=== PATIENT | female | born 1955 | race Caucasian/White ===

== ENCOUNTER 2018-04-08 16:08 | Observation (INO) | payer OTHER ==
[2018-04-08 16:12] VITALS: BMI 28.7
[2018-04-08 17:08] LABS: BASO # 0.1 K/uL (0.0-0.2); BASO % 1.3 % (0.0-2.0); EOS % 0.2 % (0.0-4.0); HEMOGLOBIN 13.4 g/dL (11.0-16.0); LYMPH # 2.2 K/uL (1.0-4.3); LYMPH % 32.2 % (20.0-40.0); MEAN CELL VOLUME 82.8 fL (81.0-99.0); MEAN CORPUSCULAR HEMOGLOBIN 27.7 pg (27.0-31.0); MEAN CORPUSCULAR HGB CONC 33.5 g/dL (33.0-37.0); MONO # 0.5 K/uL (0.0-0.8); MONO % 6.7 % (0.0-10.0); NEUT # 4.1 K/uL (1.8-7.0); NEUT % 59.6 % (50.0-75.0); NRBC % 0.1 % (0.0-2.0); RBC 4.84 Mil/uL (3.80-5.20); RED CELL DISTRIBUTION WIDTH 14.2 % (11.5-14.5); WHITE BLOOD COUNT 6.9 K/uL (4.8-10.8)
[2018-04-08 17:21] LABS: SQUAMOUS EPITHIAL 3 /hpf (0-5); URINE BACTERIA OCC (<OCC); URINE BILIRUBIN NEGATIVE (NEGATIVE); URINE BLOOD 3+ (NEGATIVE); URINE CLARITY Clear (Clear); URINE COLOR Straw (YELLOW); URINE GLUCOSE (UA) NORMAL (Normal); URINE LEUKOCYTE ESTERASE TRACE Leu/uL (Negative); URINE PROTEIN NEGATIVE (NEGATIVE); URINE UROBILINOGEN NORMAL mg/dL (0.2-1.0)
--- NOTE | 2018-04-08 17:36 | RAD ---
HISTORY: SOB COMPARISON: None available TECHNIQUE: Chest, one view. FINDINGS: LUNGS: Hypoinflation. No focal consolidation. Please note that chest x-ray has limited sensitivity for the detection of pulmonary masses. PLEURA: No significant pleural effusion identified. No definite pneumothorax . CARDIOVASCULAR: Cardiomegaly. Faint atherosclerotic calcification noted. OSSEOUS STRUCTURES: Degenerative changes of the spine. VISUALIZED UPPER ABDOMEN: Unremarkable. OTHER FINDINGS: None. IMPRESSION: Cardiomegaly. Hypoinflation.
[2018-04-08 18:36] LABS: BLOOD UREA NITROGEN 11 mg/dL (7-17); CALCIUM 9.2 mg/dl (8.6-10.4); GFR NON-AFRICAN AMERICAN > 60
[2018-04-08 18:38] LABS: ALB/GLOB RATIO 1.2 (1.0-2.1); ALBUMIN 5.1 g/dL (3.5-5.0); ALT/SGPT 10 U/L (9-52); AST/SGOT 58 U/L (14-36)
--- NOTE | 2018-04-08 18:38 | C.PDOC ---
History Of Present Illness Patient is a 62 year old female, with no PMHx of A-fib, presenting to the ED after being referred from 's office for tachycardia. Patient has a PMHx of Polio as a child, which resulted in abnormal gait and right hand contrac tions. Patient denies any diaphoresis, fever, chills, nausea, vomiting, diarrhea, or abdominal pain. Time Seen by Provider: 04/08/18 16:35 Chief Complaint (Nursing): Palpitations History Per: Patient History/Exam Limitations: no limitations Onset/Duration Of Symptoms: Hrs Current Symptoms Are (Timing): Still Present Associated Symptoms: denies: Nausea, Diaphoresis Recent travel outside of the [place]: No Additional History Per: Patient Past Medical History Reviewed: Historical Data, Nursing Documentation, Vital Signs Vital Signs: Last Vital Signs Temp 99.9 F H 04/08/18 16:12 Pulse 126 H 04/08/18 17:52 Resp 18 04/08/18 17:52 BP 150/78 04/08/18 17:52 Pulse Ox 100 04/08/18 17:52 - Medical History PMH: No Chronic Diseases Surgical History: No Surg Hx Family History: States: Unknown Family Hx - Social History Hx Alcohol Use: No Hx Substance Use: No - Immunization History Hx Tetanus Toxoid Vaccination: No Hx Influenza Vaccination: No Hx Pneumococcal Vaccination: No Review Of Systems Constitutional: Negative for: Fever, Chills, Sweats Cardiovascular: Positive for: Other (tachycardia ) Gastrointestinal: Negative for: Nausea, Abdominal Pain, Diarrhea Physical Exam - Physical Exam Appears: Non-toxic, No Acute Distress Skin: Normal Color, Warm, Dry Head: Atraumatic, Normacephalic Oral Mucosa: Moist Neck: Normal ROM, Supple Chest: Symmetrical, No Deformity Cardiovascular: Rhythm Regular (tachycardia ), No Murmur Respiratory: Normal Breath Sounds, No Rales, No Rhonchi, No Wheezing Gastrointestinal/Abdominal: Soft, No Tenderness, No Guarding, No Rebound Extremity: Pedal Edema (increased left to right ) Neurological/Psych: Oriented x3, Normal Speech, Normal Cognition ED Course And Treatment - Laboratory Results Result Diagrams: 04/08/18 17:04 04/08/18 18:14 Lab Results: D-Dimer, Quantitative < 200 ng/mlDDU (0-243) 04/08/18 17:29 Troponin I Cancelled 04/08/18 17:04 NT-Pro-B Natriuret Pep Cancelled 04/08/18 17:04 Total Bilirubin Cancelled 04/08/18 17:04 AST Cancelled 04/08/18 17:04 ALT Cancelled 04/08/18 17:04 Alkaline Phosphatase Cancelled 04/08/18 17:04 Total Protein Cancelled 04/08/18 17:04 Albumin Cancelled 04/08/18 17:04 Globulin Cancelled 04/08/18 17:04 Albumin/Globulin Ratio Cancelled 04/08/18 17:04 Urine Color Straw (YELLOW) 04/08/18 17:04 Urine Clarity Clear (Clear) 04/08/18 17:04 Urine pH 6.0 (5.0-8.0) 04/08/18 17:04 Ur Specific [place] 1.008 (1.003-1.030) 04/08/18 17:04 Urine Protein Negative mg/dL (NEGATIVE) 04/08/18 17:04 Urine Glucose (UA) Normal mg/dL (Normal) 04/08/18 17:04 Urine Ketones Negative mg/dL (NEGATIVE) 04/08/18 17:04 Urine Blood 3+ (NEGATIVE) H 04/08/18 17:04 Urine Nitrate Negative (NEGATIVE) 04/08/18 17:04 Urine Bilirubin Negative (NEGATIVE) 04/08/18 17:04 Urine Urobilinogen Normal mg/dL (0.2-1.0) 04/08/18 17:04 Ur Leukocyte Esterase Trace Gray/uL (Negative) 04/08/18 17:04 Urine WBC (Auto) 1 /hpf (0-5) 04/08/18 17:04 Urine RBC (Auto) 18 /hpf (0-3) H 04/08/18 17:04 Ur Squamous Epith Cells 3 /hpf (0-5) 04/08/18 17:04 Urine Bacteria Occ (<OCC) H 04/08/18 17:04 Lab Interpretation: Normal (trop and d dimer neg.) ECG: Interpreted By Me ECG Rhythm: Sinus Tachycardia (initially undertemined @ 152, then sinu stachy 125 after cardizem) ECG Interpretation: Abnormal (3rd EKG @ 2315: NSR @ 87) O2 Sat by Pulse Oximetry: 100 (on RA) Pulse Ox Interpretation: Normal - Radiology CXR: Interpreted by Me CXR Interpretation: Yes: No Acute Disease, Other (impressive thoracic scoliosis and kyphosis altering the normal cardiac silhouette and mediastinal contours) - Other Rad CXR X-Ray: Viewed By Me, Read By Radiologist Interpretation: IMPRESSION: Cardiomegaly. Hypoinflation. Progress Note: cardizem IV bolus and drip. bolus repeated when drip was not close to follow Reevaluation Time: 19:44 Reassessment Condition: Improved - Physician Consult Information Outcome Of Conversation: 1939: d/w Dr. Wilkinson, Hospitalist covering Dr. Katie martinez's pts- ok to admit. Medical Decision Making Medical Decision Making: Plan: EKG Bloodwork CXR Urinalysis IV Fluids Cardizem 30mg IVP initially ?AF/AFlutter moderately well controlled on Cardizem bolus/drip CXR with ? findings- repeat PA/Lat pending continue cardizem drip and consider change to PO regimen when able. Disposition Doctor Will See Patient In The: Hospital Counseled Patient/Family Regarding: Studies Performed, Diagnosis - Disposition Disposition: HOSPITALIZED Disposition Time: 19:46 Condition: GOOD - Clinical Impression Clinical Impression: Palpitations, Tachycardia - Scribe Statement The provider has reviewed the documentation as recorded by the Sulma Gutierrez All medical record entries made by the Sulma were at my direction and personally dictated by me. I have reviewed the chart and agree that the record accurately reflects my personal performance of the history, physical exam, medi jarred decision making, and the department course for this patient. I have also personally directed, reviewed, and agree with the discharge instructions and disposition.
[2018-04-08 18:45] LABS: B-TYPE NATRIURETIC PEPTIDE 68.6 pg/mL (0-900)
--- NOTE | 2018-04-08 19:54 | CP.PCM.HP ---
<AndreaKyle - Last Filed: 04/09/18 02:22> History of Present Illness - History of Present Illness History of Present Illness: PGY-1 History and Physical [address] Dr. Wilkinson Patient is a 62 year old female with past medical history of HTN and polio as a child presenting to ED from her PMD's office for tachycardia. Patient states she feels well, denies any chest pain or palpitations. She does endorse sensation of her "heart racing" in the past, often when going to the doctor. She denies any history of afib. No acute somatic complaints at this time. No fevers/chills, headaches, dizziness, acute changes in vision, chest pain, palpitations, sob, cough, abdominal pain, n/v/d/c. PMHx: HTN, polio--as a child. Has residual RUE contracture, weak b/l LE resulting in poor gait PSHx: appendectomy, tubal ligation Allergies: NKDA Home Medications: None Social Hx: denies alcohol, tobacco, illicit drug use Family Hx: HTN--mother, sister PMD: Dr. Steen Present on Admission - Present on Admission Any Indicators Present on Admission: No Review of Systems - Review of Systems All systems: reviewed and no additional remarkable complaints except Review of Systems: as per HPI - Constitutional Constitutional: absent: Chills, Fever - EENT Eyes: absent: Change in Vision - Cardiovascular Cardiovascular: Irregular Heart Rhythm, Pedal Edema, Rapid Heart Rate. absent: Chest Pain, Diaphoresis, Dyspnea, Palpitations - Respiratory Respiratory: absent: Cough, Dyspnea, Wheezing - Gastrointestinal Gastrointestinal: absent: Abdominal Pain, Constipation, Diarrhea, Nausea, Vomiting - Genitourinary Genitourinary: absent: Change in Urinary Stream - Musculoskeletal Musculoskeletal: Abnormal Gait, Deformity - Neurological Neurological: absent: Dizziness, Numbness, Headaches, Tingling, Weakness - Psychiatric Psychiatric: Anxiety Past Patient History - Past Social History Smoking Status: Never Smoked - NEUROLOGICAL Hx Neurological Disorder: Yes Other/Comment: polio - PSYCHIATRIC Hx Substance Use: No - SURGICAL HISTORY Hx Surgeries: Yes Hx Tubal Ligation: Yes Meds Allergies/Adverse Reactions: Allergies Allergy/AdvReac Type Severity Reaction Status Date / Time No Known Allergies Allergy Verified 04/08/18 16:11 Physical Exam - Constitutional Appears: Non-toxic, No Acute Distress - Head Exam Head Exam: ATRAUMATIC, NORMAL INSPECTION, NORMOCEPHALIC - Eye Exam Eye Exam: EOMI, Normal appearance Pupil Exam: NORMAL ACCOMODATION - ENT Exam ENT Exam: Mucous Membranes Moist, Normal Exam - Neck Exam Neck exam: Positive for: Full Rom, Normal Inspection. Negative for: Tenderness - Respiratory Exam Respiratory Exam: Clear to Auscultation Bilateral, NORMAL BREATHING PATTERN. absent: Accessory Muscle Use, Rales, Rhonchi, Wheezes, Respiratory Distress, Stridor - Cardiovascular Exam Cardiovascular Exam: Tachycardia, REGULAR RHYTHM, +S1, +S2 - GI/Abdominal Exam GI & Abdominal Exam: Normal Bowel Sounds, Soft. absent: Distended, Firm, Guarding, Hernia, Tenderness - Extremities Exam Extremities exam: Positive for: normal capillary refill, pedal edema (b/l 1+ pitting edema), pedal pulses present. Negative for: calf tenderness Additional comments: RUE contracture 2/2 polio Muscle strength b/l LE: 2/5 Muscle strength RUE: 3/5, LUE: 4/5 - Back Exam Back exam: NORMAL INSPECTION - Neurological Exam Neurological exam: Alert, Oriented x3 - Psychiatric Exam Psychiatric exam: Normal Affect, Normal Mood - Skin Skin Exam: Dry, Intact, Normal Color, Warm Results - Vital Signs Recent Vital Signs: Last Vital Signs Temp 99.9 F H 04/08/18 16:12 Pulse 126 H 04/08/18 19:00 Resp 18 04/08/18 19:00 BP 134/85 04/08/18 19:00 Pulse Ox 100 04/08/18 19:46 - Labs Result Diagrams: 04/08/18 17:04 04/08/18 18:14 Labs: Laboratory Results - last 24 hr 04/08/18 04/08/18 04/08/18 17:04 17:04 17:04 WBC 6.9 RBC 4.84 Hgb 13.4 Hct 40.0 MCV 82.8 MCH 27.7 MCHC 33.5 RDW 14.2 Plt Count 353 MPV 9.0 Neut % (Auto) 59.6 Lymph % (Auto) 32.2 [place] % (Auto) 6.7 Eos % (Auto) 0.2 Baso % (Auto) 1.3 Neut # (Auto) 4.1 Lymph # (Auto) 2.2 [place] # (Auto) 0.5 Eos # (Auto) 0.0 Baso # (Auto) 0.1 D-Dimer, Quantitative Sodium Cancelled Potassium Cancelled Chloride Cancelled Carbon Dioxide Cancelled Anion Gap Cancelled BUN Cancelled Creatinine Cancelled Est GFR ( Amer) Cancelled Est GFR (Non-Af Amer) Cancelled Random Glucose Cancelled Calcium Cancelled Total Bilirubin Cancelled AST Cancelled ALT Cancelled Alkaline Phosphatase Cancelled Troponin I Cancelled NT-Pro-B Natriuret Pep Cancelled Total Protein Cancelled Albumin Cancelled Globulin Cancelled Albumin/Globulin Ratio Cancelled Urine Color Straw Urine Clarity Clear Urine pH 6.0 Ur Specific [place] 1.008 Urine Protein Negative Urine Glucose (UA) Normal Urine Ketones Negative Urine Blood 3+ H Urine Nitrate Negative Urine Bilirubin Negative Urine Urobilinogen Normal Ur Leukocyte Esterase Trace Urine WBC (Auto) 1 Urine RBC (Auto) 18 H Ur Squamous Epith Cells 3 Urine Bacteria Occ H 04/08/18 04/08/18 17:29 18:14 WBC RBC Hgb Hct MCV MCH MCHC RDW Plt Count MPV Neut % (Auto) Lymph % (Auto) [place] % (Auto) Eos % (Auto) Baso % (Auto) Neut # (Auto) Lymph # (Auto) [place] # (Auto) Eos # (Auto) Baso # (Auto) D-Dimer, Quantitative < 200 Sodium 138 Potassium 5.6 H Chloride 103 Carbon Dioxide 24 Anion Gap 17 BUN 11 Creatinine 0.5 L Est GFR ( Amer) > 60 Est GFR (Non-Af Amer) > 60 Random Glucose 119 H Calcium 9.2 Total Bilirubin 1.5 H AST 58 H ALT 10 Alkaline Phosphatase 76 Troponin I 0.0280 NT-Pro-B Natriuret Pep 68.6 Total Protein 9.3 H Albumin 5.1 H Globulin 4.2 H Albumin/Globulin Ratio 1.2 Urine Color Urine Clarity Urine pH Ur Specific [place] Urine Protein Urine Glucose (UA) Urine Ketones Urine Blood Urine Nitrate Urine Bilirubin Urine Urobilinogen Ur Leukocyte Esterase Urine WBC (Auto) Urine RBC (Auto) Ur Squamous Epith Cells Urine Bacteria Assessment & Plan - Assessment and Plan (Free Text) Assessment: 62 year old F with PMHx of HTN, polio presenting to ED from PMD's office for acute onset tachycardia, placed on cardizem drip. Plan: Acute onset tachyarrhythmia ?Afib/flutter -received cardizem 30 mg IVP bolus x2 in ED, currently on cardizem drip -BNP negative -D dimer negative -Trop x1 negative -f/u JOHNNY panel 12pm, 6AM -A1C -lipid panel -TSH/Free T4 -CXR: Cardiomegaly. Faint atherosclerotic calcification noted. Hypoinflation -EKG: sinus tachy @ 153 bpm with occasional PVCs -f/u repeat EKG -f/u ECHO -monitor on telemetry -Cardiology (Dr. Garcia) on board -continue with cardizem drip @10cc/hr, continue to monitor, july d/c once HR<100 -switch to PO cardizem CD 180 mg daily in AM -ASA 81 mg PO daily -Crestor 5 mg PO daily Hyperkalemia -K 5.6 on admission, sample slightly hemolyzed -f/u repeat BMP @ 12 AM -continue to monitor Hx of HTN -not on any home meds -continue to monitor Hx Polio -fall precautions -PT/OT on board Ppx, Diet, Disposition -DVT ppx: scd, lovenox -Diet: HHD -PT/OT on board Case discussed with Dr. Jaja Mendez DO, PGY-1 <Farhad Wilkinson - Last Filed: 04/09/18 06:42> Results - Vital Signs Recent Vital Signs: Last Vital Signs Temp 98.2 F 04/09/18 04:51 Pulse 90 04/09/18 04:51 Resp 16 04/09/18 04:51 BP 127/82 04/09/18 04:51 Pulse Ox 100 04/09/18 04:51 - Labs Result Diagrams: 04/09/18 04:37 04/09/18 04:37 Labs: Laboratory Results - last 24 hr 04/08/18 04/08/18 04/08/18 17:04 17:04 17:04 WBC 6.9 RBC 4.84 Hgb 13.4 Hct 40.0 MCV 82.8 MCH 27.7 MCHC 33.5 RDW 14.2 Plt Count 353 MPV 9.0 Neut % (Auto) 59.6 Lymph % (Auto) 32.2 [place] % (Auto) 6.7 Eos % (Auto) 0.2 Baso % (Auto) 1.3 Neut # (Auto) 4.1 Lymph # (Auto) 2.2 [place] # (Auto) 0.5 Eos # (Auto) 0.0 Baso # (Auto) 0.1 D-Dimer, Quantitative Sodium Cancelled Potassium Cancelled Chloride Cancelled Carbon Dioxide Cancelled Anion Gap Cancelled BUN Cancelled Creatinine Cancelled Est GFR ( Amer) Cancelled Est GFR (Non-Af Amer) Cancelled Random Glucose Cancelled Calcium Cancelled Phosphorus Magnesium Total Bilirubin Cancelled AST Cancelled ALT Cancelled Alkaline Phosphatase Cancelled Total Creatine Kinase CK-MB (Mass) Troponin I Cancelled NT-Pro-B Natriuret Pep Cancelled Total Protein Cancelled Albumin Cancelled Globulin Cancelled Albumin/Globulin Ratio Cancelled Triglycerides Cholesterol LDL Cholesterol Direct HDL Cholesterol Free T4 TSH 3rd Generation Urine Color Straw Urine Clarity Clear Urine pH 6.0 Ur Specific [place] 1.008 Urine Protein Negative Urine Glucose (UA) Normal Urine Ketones Negative Urine Blood 3+ H Urine Nitrate Negative Urine Bilirubin Negative Urine Urobilinogen Normal Ur Leukocyte Esterase Trace Urine WBC (Auto) 1 Urine RBC (Auto) 18 H Ur Squamous Epith Cells 3 Urine Bacteria Occ H 04/08/18 04/08/18 04/09/18 17:29 18:14 04:00 WBC RBC Hgb Hct MCV MCH MCHC RDW Plt Count MPV Neut % (Auto) Lymph % (Auto) [place] % (Auto) Eos % (Auto) Baso % (Auto) Neut # (Auto) Lymph # (Auto) [place] # (Auto) Eos # (Auto) Baso # (Auto) D-Dimer, Quantitative < 200 Sodium 138 Potassium 5.6 H Chloride 103 Carbon Dioxide 24 Anion Gap 17 BUN 11 Creatinine 0.5 L Est GFR ( Amer) > 60 Est GFR (Non-Af Amer) > 60 Random Glucose 119 H Calcium 9.2 Phosphorus Magnesium Total Bilirubin 1.5 H AST 58 H ALT 10 Alkaline Phosphatase 76 Total Creatine Kinase CK-MB (Mass) Troponin I 0.0280 NT-Pro-B Natriuret Pep 68.6 Total Protein 9.3 H Albumin 5.1 H Globulin 4.2 H Albumin/Globulin Ratio 1.2 Triglycerides Cholesterol LDL Cholesterol Direct HDL Cholesterol Free T4 TSH 3rd Generation 3.74 Urine Color Urine Clarity Urine pH Ur Specific [place] Urine Protein Urine Glucose (UA) Urine Ketones Urine Blood Urine Nitrate Urine Bilirubin Urine Urobilinogen Ur Leukocyte Esterase Urine WBC (Auto) Urine RBC (Auto) Ur Squamous Epith Cells Urine Bacteria 04/09/18 04/09/18 04/09/18 04:37 04:37 04:37 WBC 6.9 RBC 4.66 Hgb 13.1 Hct 39.4 MCV 84.4 MCH 28.1 MCHC 33.3 RDW 14.2 Plt Count 318 MPV 9.0 Neut % (Auto) 40.4 L Lymph % (Auto) 48.3 H [place] % (Auto) 9.6 Eos % (Auto) 0.7 Baso % (Auto) 1.0 Neut # (Auto) 2.8 Lymph # (Auto) 3.3 [place] # (Auto) 0.7 Eos # (Auto) 0.0 Baso # (Auto) 0.1 D-Dimer, Quantitative Sodium 141 Potassium 3.3 L Chloride 101 Carbon Dioxide 31 H Anion Gap 12 BUN 16 Creatinine 0.7 Est GFR ( Amer) > 60 Est GFR (Non-Af Amer) > 60 Random Glucose 109 H Calcium 9.2 Phosphorus 4.1 Magnesium 1.9 Total Bilirubin 0.6 AST 22 ALT 20 Alkaline Phosphatase 85 Total Creatine Kinase 169 H CK-MB (Mass) 2.97 Troponin I 0.0240 NT-Pro-B Natriuret Pep Total Protein 8.5 H Albumin 4.5 Globulin 4.0 H Albumin/Globulin Ratio 1.1 Triglycerides 137 Cholesterol 209 H LDL Cholesterol Direct 128 HDL Cholesterol 54 Free T4 1.07 TSH 3rd Generation Urine Color Urine Clarity Urine pH Ur Specific [place] Urine Protein Urine Glucose (UA) Urine Ketones Urine Blood Urine Nitrate Urine Bilirubin Urine Urobilinogen Ur Leukocyte Esterase Urine WBC (Auto) Urine RBC (Auto) Ur Squamous Epith Cells Urine Bacteria Assessment & Plan - Date & Time Date: 04/09/18 (I have seen and examined the patient. I agree with the findings and plan of care as documented by Dr. Mendez. Patient with rapid atrial fib. Cardizem drip started in ED. Continue drip. Plan to switch to PO. Monitor on tele. ROMIx3 with EKG. Aspirin and Statin. Potassium elevated. Sample may be hemolyzed. Recheck. History of hypertension. Monitor and add medications as needed. History of polio with residual issues. Fall precautions. PT/OT. Monitor for acute changes.) Time: 06:39 Attending/Attestation - Attestation I have personally seen and examined this patient.: Yes I have fully participated in the care of the patient.: Yes I have reviewed all pertinent clinical information: Yes
[2018-04-09 04:44] LABS: BASO # 0.1 K/uL (0.0-0.2); EOS % 0.7 % (0.0-4.0); HEMOGLOBIN 13.1 g/dL (11.0-16.0); LYMPH # 3.3 K/uL (1.0-4.3); LYMPH % 48.3 % (20.0-40.0); MEAN CELL VOLUME 84.4 fL (81.0-99.0); MEAN CORPUSCULAR HEMOGLOBIN 28.1 pg (27.0-31.0); MEAN CORPUSCULAR HGB CONC 33.3 g/dL (33.0-37.0); MONO # 0.7 K/uL (0.0-0.8); MONO % 9.6 % (0.0-10.0); NEUT # 2.8 K/uL (1.8-7.0); NEUT % 40.4 % (50.0-75.0); NRBC % 0.1 % (0.0-2.0); RBC 4.66 Mil/uL (3.80-5.20); RED CELL DISTRIBUTION WIDTH 14.2 % (11.5-14.5); WHITE BLOOD COUNT 6.9 K/uL (4.8-10.8)
[2018-04-09 05:10] LABS: LDL CHOLESTEROL 128 mg/dL (0-129)
[2018-04-09 05:11] LABS: ALB/GLOB RATIO 1.1 (1.0-2.1); ALBUMIN 4.5 g/dL (3.5-5.0); ALT/SGPT 20 U/L (9-52); AST/SGOT 22 U/L (14-36); BLOOD UREA NITROGEN 16 mg/dL (7-17); CALCIUM 9.2 mg/dl (8.6-10.4); CK-MB 2.97 ng/mL (0.0-3.38); GFR NON-AFRICAN AMERICAN > 60; HDL CHOLESTEROL 54 mg/dL (30-70)
[2018-04-09] MEDS ORDERED: Potassium Chloride 20 mEq ER Tab PO ONE ×3 (05:54→08:21)
--- NOTE | 2018-04-09 08:36 | RAD ---
Date of service: 04/08/2018 HISTORY: adm cxr, tachycardia COMPARISON: No prior. TECHNIQUE: Chest PA and lateral FINDINGS: LUNGS: No active pulmonary disease. PLEURA: No significant pleural effusion identified. No pneumothorax apparent. CARDIOVASCULAR: No aortic atherosclerotic calcification present. Cardiac size does not appear dramatically enlarged however the patient rotated in multiple projections and is difficult to evaluate. No pulmonary vascular congestion. OSSEOUS STRUCTURES: Kyphoscoliotic deformity, which limits ability to adequately position on the frontal projections. VISUALIZED UPPER ABDOMEN: Normal. OTHER FINDINGS: None. IMPRESSION: No acute infiltrate bilaterally, pleural effusion or pulmonary vascular congestion.
[2018-04-09] MEDS: diltiaZEM 180 mg/24 Hours CD Cap PO SCH (11:02)
[2018-04-09] MEDS: Enoxaparin 40 mg Syringe SC SCH (11:04)
[2018-04-09 11:42] LABS: CK-MB 2.15 ng/mL (0.0-3.38); TROPONIN I 0.034 ng/mL (0.00-0.120)
--- NOTE | 2018-04-09 14:51 | CP.PCM.PN ---
<Jaime Barkley - Last Filed: 04/09/18 14:43> Subjective - Date & Time of Evaluation Date of Evaluation: 04/09/18 Time of Evaluation: 14:54 - Subjective Subjective: PGY-[address] Smith Patient seen and examined at bedside in ER this morning. She has no acute complaints. Patient found to be normotensive and normal sinus on monitor. Nursing did call to report HTN and tachy later in the day, but resolved follow ing PM cardizem dose. Patient denies chest pain, palpitations, dizziness, nausea, vomiting, abdominal pain, headache. Objective - Vital Signs/Intake and Output Vital Signs (last 24 hours): Temp Pulse Resp BP Pulse Ox 98.5 F 109 H 21 142/88 100 04/09/18 07:15 04/09/18 12:14 04/09/18 12:14 04/09/18 12:14 04/09/18 12:14 - Medications Medications: Current Medications Aspirin (Aspirin Chewable) 81 mg PO DAILY [facility] Last Admin: 04/09/18 11:00 Dose: 81 mg Diltiazem HCl (Cardizem Cd) 180 mg PO DAILY [facility] Last Admin: 04/09/18 11:02 Dose: 180 mg Enoxaparin Sodium (Lovenox) 40 mg SC DAILY [facility] Last Admin: 04/09/18 11:04 Dose: 40 mg Influenza Virus Vaccine (Flucelvax Quad 0824-5496 Syr) 60 mcg IM .ONCE ONE Stop: 04/10/18 10:01 Rosuvastatin Calcium (Crestor) 5 mg PO [facility] Last Admin: 04/09/18 03:50 Dose: 5 mg - Labs Labs: 04/09/18 04:37 04/09/18 04:37 - Constitutional Appears: Non-toxic, No Acute Distress - Head Exam Head Exam: ATRAUMATIC, NORMAL INSPECTION - Eye Exam Eye Exam: EOMI - ENT Exam ENT Exam: Mucous Membranes Moist - Respiratory Exam Respiratory Exam: Clear to Ausculation Bilateral, NORMAL BREATHING PATTERN. absent: Rhonchi, Wheezes - Cardiovascular Exam Cardiovascular Exam: REGULAR RHYTHM, +S1, +S2 Additional comments: Sinus on monitor with HR in 80s - GI/Abdominal Exam GI & Abdominal Exam: Soft, Normal Bowel Sounds. absent: Tenderness - Extremities Exam Additional comments: Contracted upper extremities b/l (chronic 2/2 polio per patient's son) - Neurological Exam Neurological Exam: Alert, Awake, CN II-XII Intact, Oriented x3 - Psychiatric Exam Psychiatric exam: Normal Affect, Normal Mood - Skin Skin Exam: Dry, Intact Assessment and Plan - Assessment and Plan (Free Text) Assessment: Assessment: 62 year old F with PMHx of HTN, polio presenting to ED from PMD's office for acute onset tachycardia. Off cardizem drip, on PO cardizem. Monitoring on tele. Plan: Acute onset tachyarrhythmia ?Afib/flutter -received cardizem 30 mg IVP bolus x2 in ED, currently on cardizem drip -BNP negative -D dimer negative -Trop x3 negative -TSH/Free T4 WNL -CXR: Cardiomegaly. Faint atherosclerotic calcification noted. Hypoinflation -EKG: sinus tachy @ 153 bpm with occasional PVCs -3rd EKG 6am NSR in 80s. Repeating additional EKG with patient now on PO cardizem - f/u -ECHO 04/09 - f/u official read -monitor on telemetry -Cardiology (Dr. Garcia) on board -Off cardizem drip (previously on drip @10cc/hr), continue to monitor -switched to PO cardizem CD 180 mg daily in AM -ASA 81 mg PO daily -Crestor 5 mg PO daily Hyperkalemia -K 5.6 on admission, sample slightly hemolyzed -Repeat K 3.3 - repleted -continue to monitor Hx of HTN -not on any home meds -continue to monitor IGT -A1C 5.6 -Discussed with patient importance of healthy diet, especially due to fact she seems to choose to be noncompliant with medications because she does not like taking medications. -lipid panel - hypercholesterolemia; LDL/HDL WNL Hx Polio -fall precautions -PT/OT on board Ppx, Diet, Disposition -DVT ppx: scd, lovenox -Diet: HHD -PT/OT on board Case discussed with Dr. Sarah Barkley DO, PGY-1 <Cynthia Smith V - Last Filed: 04/10/18 00:53> Objective - Vital Signs/Intake and Output Vital Signs (last 24 hours): Temp Pulse Resp BP Pulse Ox 98.4 F 77 20 149/88 100 04/09/18 16:18 04/09/18 16:26 04/09/18 16:18 04/09/18 16:18 04/09/18 16:18 - Medications Medications: Current Medications Aspirin (Aspirin Chewable) 81 mg PO DAILY [facility] Last Admin: 04/09/18 11:00 Dose: 81 mg Diltiazem HCl (Cardizem Cd) 180 mg PO DAILY [facility] Last Admin: 04/09/18 11:02 Dose: 180 mg Enoxaparin Sodium (Lovenox) 40 mg SC DAILY [facility] Last Admin: 04/09/18 11:04 Dose: 40 mg Influenza Virus Vaccine (Flucelvax Quad [id number] Syr) 60 mcg IM .ONCE ONE Stop: 04/10/18 10:01 Rosuvastatin Calcium (Crestor) 5 mg PO HS [facility] Last Admin: 04/09/18 21:34 Dose: 5 mg - Labs Labs: 04/09/18 04:37 04/09/18 04:37 Attending/Attestation - Attestation I have personally seen and examined this patient.: Yes I have fully participated in the care of the patient.: Yes I have reviewed all pertinent clinical information, including history, physical exam and plan: Yes Notes (Text): Patient seen, examined, and case discussed with day-time resident. Patient this morning with her son and family friend at bedside. Patient allows for us to share her medical information with her son. Patient remains asymptomatic. However, she reports she chose to stop her anti- hypertensive medications on her own because she wanted to use natural/herbal supplements such as garlic/yobany etc; yet at bedside patient is eating crissosant rueda sandwich. I did advised her she cannot expect her herbal supplements to control her blood pressure if she chooses to engage in high salt diet which son reports she eats late night pizza and fried foods to contribute to unhealthy living. She was advised she should use anti-hypertensive with lifestyle modifications with natural supplements as adjunct therapy to help control her blood pressure. Yesterday, patient had received Cardizem 30mg IV X1, and cardizem drip at 10mg/hr but was stopped when heart and blood pressure lowered. Patient was on Cardizem 180mg POX1 which help to control her vitals, echo was completed.initial d-dimer was negative. was repeated by cardio which became elevated. Patient had ct angio which ruled her out for PE. pending official read for leg edema which she reports she has had for 2 months but didn't want to get evaluated sooner because she is afraid of the hospitals. Patient is requesting for PT/OT given she feels deconditioned from her polio. Acute onset tachyarrhythmia -received cardizem 30 mg IVP bolus x2 in ED, currently on cardizem drip -BNP negative -D dimer negative; repeat positive -Trop x3 negative -TSH/Free T4 WNL CT angio negative for PE -CXR: Cardiomegaly. Faint atherosclerotic calcification noted. Hypoinflation -EKG: sinus tachy @ 153 bpm with occasional PVCs -3rd EKG 6am NSR in 80s. Repeating additional EKG with patient now on PO cardizem - f/u -ECHO 04/09 - f/u official read -monitor on telemetry -Cardiology (Dr. Garcia) on board -Off cardizem drip (previously on drip @10cc/hr), continue to monitor -switched to PO cardizem CD 180 mg daily in AM -ASA 81 mg PO daily -Crestor 5 mg PO daily Hyperkalemia -K 5.6 on admission, sample slightly hemolyzed -Repeat K 3.3 - repleted -continue to monitor Hx of HTN -not on any home meds -Cardizem 180mg PO daily -continue to monitor IGT -A1C 5.6 -Discussed with patient importance of healthy diet, especially due to fact she seems to choose to be noncompliant with medications because she does not like taking medications. -lipid panel - hypercholesterolemia; LDL/HDL WNL Hx Polio -fall precautions -PT/OT on board Ppx, Diet, Disposition -DVT ppx: scd, lovenox -Diet: HHD -PT/OT on board
[2018-04-09 15:47] LABS: OPIATES, UR NEGATIVE (NEGATIVE); PHENCYCLIDINE, UR NEGATIVE (NEGATIVE)
[2018-04-09 15:49] LABS: BARBITURATES, UR NEGATIVE (NEGATIVE); BENZODIAZEPINES, UR NEGATIVE (NEGATIVE)
--- NOTE | 2018-04-09 16:17 | CP.PCM.CON ---
History of Present Illness - History of Present Illness History of Present Illness: The pt is a 62 year old woman with a h/o olio, who has leg edema. She was at a doctpor's office for this, and she had HTN and a fast heart rate, and was sent to the ER. In the ER, ECG demonstrated sinus tachycardia, and ER MD note kaylin rted atrial flutter and apparently IV cardezem ordered, now stopped. Pt had no chest pain or dyspnea with tachycardia. Pt is not a diabetic, has been told of high bp in the past, but on no meds. non smoker TNi is negative Additional ecgs show nsr Echo, I reviewed, is normal. TFT normal. Labs: mildly abnormal liver function. Review of Systems - Review of Systems All systems: reviewed and no additional remarkable complaints except (as above. Pt does not walk much and stays in the house) Past Patient History - Past Social History Smoking Status: Never Smoked - NEUROLOGICAL Hx Neurological Disorder: Yes Other/Comment: polio - PSYCHIATRIC Hx Substance Use: No - SURGICAL HISTORY Hx Surgeries: Yes Hx Tubal Ligation: Yes Meds Allergies/Adverse Reactions: Allergies Allergy/AdvReac Type Severity Reaction Status Date / Time No Known Allergies Allergy Verified 04/08/18 16:11 - Medications Medications: Current Medications Aspirin (Aspirin Chewable) 81 mg PO DAILY [facility] Last Admin: 04/09/18 11:00 Dose: 81 mg Diltiazem HCl (Cardizem Cd) 180 mg PO DAILY [facility] Last Admin: 04/09/18 11:02 Dose: 180 mg Enoxaparin Sodium (Lovenox) 40 mg SC DAILY [facility] Last Admin: 04/09/18 11:04 Dose: 40 mg Influenza Virus Vaccine (Flucelvax Quad [id number] Syr) 60 mcg IM .ONCE ONE Stop: 04/10/18 10:01 Rosuvastatin Calcium (Crestor) 5 mg PO [facility] Last Admin: 04/09/18 03:50 Dose: 5 mg Physical Exam - Constitutional Appears: Well - Head Exam Head Exam: ATRAUMATIC - Eye Exam Eye Exam: EOMI - ENT Exam ENT Exam: Mucous Membranes Moist - Neck Exam Neck exam: Positive for: Normal Inspection - Respiratory Exam Respiratory Exam: Clear to Auscultation Bilateral - Cardiovascular Exam Cardiovascular Exam: REGULAR RHYTHM - GI/Abdominal Exam GI & Abdominal Exam: Normal Bowel Sounds - Exam External exam: Swelling - Extremities Exam Extremities exam: Positive for: pedal edema - Back Exam Back exam: NORMAL INSPECTION - Psychiatric Exam Psychiatric exam: Normal Affect, Normal Mood - Skin Skin Exam: Normal Color Results - Vital Signs Recent Vital Signs: Last Vital Signs Temp 98.5 F 04/09/18 15:34 Pulse 77 04/09/18 15:34 Resp 17 04/09/18 15:34 BP 148/90 04/09/18 15:34 Pulse Ox 98 04/09/18 15:34 - Labs Result Diagrams: 04/09/18 04:37 04/09/18 04:37 Labs: Laboratory Results - last 24 hr 04/08/18 04/08/18 04/08/18 17:04 17:04 17:04 WBC 6.9 RBC 4.84 Hgb 13.4 Hct 40.0 MCV 82.8 MCH 27.7 MCHC 33.5 RDW 14.2 Plt Count 353 MPV 9.0 Neut % (Auto) 59.6 Lymph % (Auto) 32.2 [place] % (Auto) 6.7 Eos % (Auto) 0.2 Baso % (Auto) 1.3 Neut # (Auto) 4.1 Lymph # (Auto) 2.2 [place] # (Auto) 0.5 Eos # (Auto) 0.0 Baso # (Auto) 0.1 D-Dimer, Quantitative Sodium Cancelled Potassium Cancelled Chloride Cancelled Carbon Dioxide Cancelled Anion Gap Cancelled BUN Cancelled Creatinine Cancelled Est GFR ( Amer) Cancelled Est GFR (Non-Af Amer) Cancelled Random Glucose Cancelled Hemoglobin A1c Calcium Cancelled Phosphorus Magnesium Total Bilirubin Cancelled AST Cancelled ALT Cancelled Alkaline Phosphatase Cancelled Total Creatine Kinase CK-MB (Mass) Troponin I Cancelled NT-Pro-B Natriuret Pep Cancelled Total Protein Cancelled Albumin Cancelled Globulin Cancelled Albumin/Globulin Ratio Cancelled Triglycerides Cholesterol LDL Cholesterol Direct HDL Cholesterol Free T4 TSH 3rd Generation Urine Color Straw Urine Clarity Clear Urine pH 6.0 Ur Specific [place] 1.008 Urine Protein Negative Urine Glucose (UA) Normal Urine Ketones Negative Urine Blood 3+ H Urine Nitrate Negative Urine Bilirubin Negative Urine Urobilinogen Normal Ur Leukocyte Esterase Trace Urine WBC (Auto) 1 Urine RBC (Auto) 18 H Ur Squamous Epith Cells 3 Urine Bacteria Occ H Urine Opiates Screen Urine Methadone Screen Ur Barbiturates Screen Ur Phencyclidine Scrn Ur Amphetamines Screen U Benzodiazepines Scrn U Oth Cocaine Metabols U Cannabinoids Screen 04/08/18 04/08/18 04/09/18 17:29 18:14 04:00 WBC RBC Hgb Hct MCV MCH MCHC RDW Plt Count MPV Neut % (Auto) Lymph % (Auto) [place] % (Auto) Eos % (Auto) Baso % (Auto) Neut # (Auto) Lymph # (Auto) [place] # (Auto) Eos # (Auto) Baso # (Auto) D-Dimer, Quantitative < 200 Sodium 138 Potassium 5.6 H Chloride 103 Carbon Dioxide 24 Anion Gap 17 BUN 11 Creatinine 0.5 L Est GFR ( Amer) > 60 Est GFR (Non-Af Amer) > 60 Random Glucose 119 H Hemoglobin A1c Calcium 9.2 Phosphorus Magnesium Total Bilirubin 1.5 H AST 58 H ALT 10 Alkaline Phosphatase 76 Total Creatine Kinase CK-MB (Mass) Troponin I 0.0280 NT-Pro-B Natriuret Pep 68.6 Total Protein 9.3 H Albumin 5.1 H Globulin 4.2 H Albumin/Globulin Ratio 1.2 Triglycerides Cholesterol LDL Cholesterol Direct HDL Cholesterol Free T4 TSH 3rd Generation 3.74 Urine Color Urine Clarity Urine pH Ur Specific [place] Urine Protein Urine Glucose (UA) Urine Ketones Urine Blood Urine Nitrate Urine Bilirubin Urine Urobilinogen Ur Leukocyte Esterase Urine WBC (Auto) Urine RBC (Auto) Ur Squamous Epith Cells Urine Bacteria Urine Opiates Screen Urine Methadone Screen Ur Barbiturates Screen Ur Phencyclidine Scrn Ur Amphetamines Screen U Benzodiazepines Scrn U Oth Cocaine Metabols U Cannabinoids Screen 04/09/18 04/09/18 04/09/18 04:37 04:37 04:37 WBC 6.9 RBC 4.66 Hgb 13.1 Hct 39.4 MCV 84.4 MCH 28.1 MCHC 33.3 RDW 14.2 Plt Count 318 MPV 9.0 Neut % (Auto) 40.4 L Lymph % (Auto) 48.3 H [place] % (Auto) 9.6 Eos % (Auto) 0.7 Baso % (Auto) 1.0 Neut # (Auto) 2.8 Lymph # (Auto) 3.3 [place] # (Auto) 0.7 Eos # (Auto) 0.0 Baso # (Auto) 0.1 D-Dimer, Quantitative Sodium 141 Potassium 3.3 L Chloride 101 Carbon Dioxide 31 H Anion Gap 12 BUN 16 Creatinine 0.7 Est GFR ( Amer) > 60 Est GFR (Non-Af Amer) > 60 Random Glucose 109 H Hemoglobin A1c Calcium 9.2 Phosphorus 4.1 Magnesium 1.9 Total Bilirubin 0.6 AST 22 ALT 20 Alkaline Phosphatase 85 Total Creatine Kinase 169 H CK-MB (Mass) 2.97 Troponin I 0.0240 NT-Pro-B Natriuret Pep Total Protein 8.5 H Albumin 4.5 Globulin 4.0 H Albumin/Globulin Ratio 1.1 Triglycerides 137 Cholesterol 209 H LDL Cholesterol Direct 128 HDL Cholesterol 54 Free T4 1.07 TSH 3rd Generation Urine Color Urine Clarity Urine pH Ur Specific [place] Urine Protein Urine Glucose (UA) Urine Ketones Urine Blood Urine Nitrate Urine Bilirubin Urine Urobilinogen Ur Leukocyte Esterase Urine WBC (Auto) Urine RBC (Auto) Ur Squamous Epith Cells Urine Bacteria Urine Opiates Screen Urine Methadone Screen Ur Barbiturates Screen Ur Phencyclidine Scrn Ur Amphetamines Screen U Benzodiazepines Scrn U Oth Cocaine Metabols U Cannabinoids Screen 04/09/18 04/09/18 04/09/18 05:08 11:06 14:57 WBC RBC Hgb Hct MCV MCH MCHC RDW Plt Count MPV Neut % (Auto) Lymph % (Auto) [place] % (Auto) Eos % (Auto) Baso % (Auto) Neut # (Auto) Lymph # (Auto) [place] # (Auto) Eos # (Auto) Baso # (Auto) D-Dimer, Quantitative Sodium Potassium Chloride Carbon Dioxide Anion Gap BUN Creatinine Est GFR ( Amer) Est GFR (Non-Af Amer) Random Glucose Hemoglobin A1c 5.6 Calcium Phosphorus Magnesium Total Bilirubin AST ALT Alkaline Phosphatase Total Creatine Kinase 130 CK-MB (Mass) 2.15 Troponin I 0.0340 NT-Pro-B Natriuret Pep Total Protein Albumin Globulin Albumin/Globulin Ratio Triglycerides Cholesterol LDL Cholesterol Direct HDL Cholesterol Free T4 TSH 3rd Generation Urine Color Urine Clarity Urine pH Ur Specific [place] Urine Protein Urine Glucose (UA) Urine Ketones Urine Blood Urine Nitrate Urine Bilirubin Urine Urobilinogen Ur Leukocyte Esterase Urine WBC (Auto) Urine RBC (Auto) Ur Squamous Epith Cells Urine Bacteria Urine Opiates Screen Negative Urine Methadone Screen Negative Ur Barbiturates Screen Negative Ur Phencyclidine Scrn Negative Ur Amphetamines Screen Negative U Benzodiazepines Scrn Negative U Oth Cocaine Metabols Negative U Cannabinoids Screen Negative 04/09/18 15:02 WBC RBC Hgb Hct MCV MCH MCHC RDW Plt Count MPV Neut % (Auto) Lymph % (Auto) [place] % (Auto) Eos % (Auto) Baso % (Auto) Neut # (Auto) Lymph # (Auto) [place] # (Auto) Eos # (Auto) Baso # (Auto) D-Dimer, Quantitative 437 H Sodium Potassium Chloride Carbon Dioxide Anion Gap BUN Creatinine Est GFR ( Amer) Est GFR (Non-Af Amer) Random Glucose Hemoglobin A1c Calcium Phosphorus Magnesium Total Bilirubin AST ALT Alkaline Phosphatase Total Creatine Kinase CK-MB (Mass) Troponin I NT-Pro-B Natriuret Pep Total Protein Albumin Globulin Albumin/Globulin Ratio Triglycerides Cholesterol LDL Cholesterol Direct HDL Cholesterol Free T4 TSH 3rd Generation Urine Color Urine Clarity Urine pH Ur Specific [place] Urine Protein Urine Glucose (UA) Urine Ketones Urine Blood Urine Nitrate Urine Bilirubin Urine Urobilinogen Ur Leukocyte Esterase Urine WBC (Auto) Urine RBC (Auto) Ur Squamous Epith Cells Urine Bacteria Urine Opiates Screen Urine Methadone Screen Ur Barbiturates Screen Ur Phencyclidine Scrn Ur Amphetamines Screen U Benzodiazepines Scrn U Oth Cocaine Metabols U Cannabinoids Screen - EKG Data EKG Interpreted by: Myself EKG shows normal: Sinus rhythm Rate: Tachycardia (sinus tachycardia, otherwise normal) Assessment & Plan - Assessment and Plan (Free Text) Assessment: 1. Unexplained sinus tachycardia: d dimer ordered. If elevated, consider cta 2. Normal LV EF and doppler. neg TNI 3. No atrial flutter seen. 4. HTN: beta gilmar for both s tach and mild htn. Advance as tolerated or needed.
[2018-04-09 16:18] VITALS: RESP 20
[2018-04-09] MEDS ORDERED: Iodixanol 320 MG/ML 100 ML BOTTLE IV ONE (17:11)
--- NOTE | 2018-04-09 17:56 | CT ---
Date of service: 04/09/2018 CTA chest PE protocol Indication: s tach, elevated d dimer Technique: Contiguous axial images were obtained through the chest with intravenous contrast enhancement. Sagittal and coronal reconstructions were generated and reviewed. This CT exam was performed using 1 or more of the following dose reduction techniques: Automated exposure control, adjustment of the MAA and/or kV according to patient size, and/or use of iterative reconstruction technique. IV contrast: 100 cc Visipaque 320 Radiation dose (DLP): 473.46 MGy-cm. Comparison: Chest x-ray performed 04/08/18 Findings: Visualized portions of the inferior thyroid gland demonstrates 4 mm right lower pole nodule. The mediastinal and hilar vascular structures appear within normal limits. Mild cardiomegaly. No large central or segmental pulmonary embolus evident. No focal consolidation. No pleural effusion. No pneumothorax. 5 mm right middle lobe subpleural nodule (series 4, image 61). Limited visualized portions of the upper abdomen appear grossly unremarkable. Degenerative changes. Scoliosis. Impression: No large central or segmental pulmonary embolus identified. 5 mm right middle lobe subpleural nodule. If the patient is high risk, an optional CT at 12 months is recommended. 4 mm right lower pole thyroid nodule. Mild cardiomegaly.
--- NOTE | 2018-04-10 05:21 | CARD ---
APPROVED REPORT Date of service: 04/09/2018 EXAM: Two-dimensional and M-mode echocardiogram with Doppler and color Doppler. INDICATION Chest Pain tachycardia RISK FACTORS Hypertension 2D DIMENSIONS IVSd0.9 (0.7-1.1cm)LVDd3.3 (3.9-5.9cm) PWd1.0 (0.7-1.1cm)LA Nzbplf77 (18-58mL) LVDs1.9 (2.5-4.0cm)FS (%) 43.0 % LVEF (%)75.4 (>50%)LVEF (Jain's)63.77 % M-Mode DIMENSIONS Left Atrium (MM)3.76 (2.5-4.0cm)IVSd0.78 (0.7-1.1cm) Aortic Root2.99 (2.2-3.7cm)LVDd3.68 (4.0-5.6cm) Aortic Cusp Exc.1.73 (1.5-2.0cm)PWd0.80 (0.7-1.1cm) FS (%) 46 %LVDs1.97 (2.0-3.8cm) LVEF (%)79 (>50%) Mitral Valve MV E Jggcyert14.7cm/sMV A Bvrcohxy29.0cm/sE/A ratio0.7 TDI Lateral E' Peak V9.38cm/sMedial E' Peak V5.58cm/sE/Lateral E'7.5 E/Medial E'12.7 Tricuspid Valve TR Peak [id number]/sTR Peak [id number] LEFT VENTRICLE The left ventricle is normal size. There is normal left ventricular wall thickness. Left ventricle systolic function is normal. The Ejection Fraction is 60-65%. There is normal LV segmental wall motion. Tissue Doppler imaging reveals abnormal left ventricular diastolic dysfunction. No left ventricle thrombus noted on this study. RIGHT VENTRICLE The right ventricle is normal size. There is normal right ventricular wall thickness. The right ventricular systolic function is normal. ATRIA The left atrium size is normal. The right atrium size is normal. The interatrial septum is intact with no evidence for an atrial septal defect. AORTIC VALVE The aortic valve is normal in structure. No aortic regurgitation is present. There is no aortic valvular stenosis. MITRAL VALVE The mitral valve is normal in structure. There is no evidence of mitral valve prolapse. There is no mitral valve stenosis. There is no mitral valve regurgitation noted. TRICUSPID VALVE The tricuspid valve is normal in structure. There is mild tricuspid regurgitation. Right ventricular systolic pressure is estimated at 30-40 mmHg. There is mild pulmonary hypertension. PULMONIC VALVE The pulmonic valve is not well visualized. There is no pulmonic valvular regurgitation. GREAT VESSELS The aortic root is normal in size. PERICARDIAL EFFUSION There is no significant pericardial effusion. <Conclusion> Left ventricle systolic function is normal. The Ejection Fraction is 60-65%. Diastolic dysfunction. No aortic regurgitation is present. There is no mitral valve regurgitation noted. There is mild tricuspid regurgitation. There is mild pulmonary hypertension. There is no pulmonic valvular regurgitation.
--- NOTE | 2018-04-10 05:47 | CARD ---
APPROVED REPORT Date of service: 04/08/2018 EKG Measurement Heart [id number] [place] [id number] <Conclusion> Normal sinus rhythm Normal ECG
--- NOTE | 2018-04-10 05:51 | CARD ---
APPROVED REPORT Date of service: 04/08/2018 EKG Measurement Heart [id number] <Conclusion> Sinus tachycardia Nonspecific ST abnormality Abnormal ECG
--- NOTE | 2018-04-10 05:52 | CARD ---
APPROVED REPORT Date of service: 04/08/2018 EKG Measurement Heart [id number] <Conclusion> Sinus tachycardia with occasional premature ventricular complexes Nonspecific ST abnormality Abnormal ECG
[2018-04-10 07:52] LABS: BASO % 0.5 % (0.0-2.0); EOS # 0.1 K/uL (0.0-0.7); HEMOGLOBIN 13.1 g/dL (11.0-16.0); LYMPH % 32.2 % (20.0-40.0); MEAN CORPUSCULAR HEMOGLOBIN 28.4 pg (27.0-31.0); MEAN CORPUSCULAR HGB CONC 33.5 g/dL (33.0-37.0); MEAN PLATELET VOLUME 9.3 fL (7.2-11.7); MONO # 0.5 K/uL (0.0-0.8); MONO % 7.4 % (0.0-10.0); NEUT # 3.6 K/uL (1.8-7.0); NEUT % 58.9 % (50.0-75.0); NRBC % 0.1 % (0.0-2.0); RBC 4.61 Mil/uL (3.80-5.20); RED CELL DISTRIBUTION WIDTH 14.5 % (11.5-14.5); WHITE BLOOD COUNT 6.2 K/uL (4.8-10.8)
[2018-04-10 08:26] LABS: ALB/GLOB RATIO 1.3 (1.0-2.1); ALBUMIN 4.5 g/dL (3.5-5.0); ALT/SGPT 18 U/L (9-52); AST/SGOT 30 U/L (14-36); BLOOD UREA NITROGEN 24 mg/dL (7-17); CALCIUM 9.2 mg/dl (8.6-10.4); GFR NON-AFRICAN AMERICAN > 60
[2018-04-10 08:43] VITALS: TEMP 98; O2SAT 97
[2018-04-10] MEDS ORDERED: Influenza Vaccine 60 mcg/0.5 mL SYR (4YR UP) IM ONE ×2 (10:00→11:00)
[2018-04-10 10:16] VITALS: BP 125/86
[2018-04-10] MEDS: Enoxaparin 40 mg Syringe SC SCH (10:16)
[2018-04-10] MEDS: diltiaZEM 180 mg/24 Hours CD Cap PO SCH (10:16)
[2018-04-10] MEDS ORDERED: Influenza Vaccine 60 MCG/0.5 ML SYR (3 yr & up) IM ONE (11:00)
--- NOTE | 2018-04-10 11:02 | CP.PCM.PN ---
Subjective - Date & Time of Evaluation Date of Evaluation: 04/10/18 Time of Evaluation: 11:00 - Subjective Subjective: The pt feels well. Pt is sedentary, had sinus tach. Pos d dimer. A cta was performed, and was negative. There is a lung nodule and ct f/u is advised. Objective - Vital Signs/Intake and Output Vital Signs (last 24 hours): Temp Pulse Resp BP Pulse Ox 98 F 84 20 125/86 97 04/10/18 08:00 04/10/18 10:15 04/10/18 08:00 04/10/18 10:15 04/10/18 08:00 - Medications Medications: Current Medications Aspirin (Aspirin Chewable) 81 mg PO DAILY [facility] Last Admin: 04/10/18 10:16 Dose: 81 mg Diltiazem HCl (Cardizem Cd) 180 mg PO DAILY [facility] Last Admin: 04/10/18 10:16 Dose: 180 mg Enoxaparin Sodium (Lovenox) 40 mg SC DAILY [facility] Last Admin: 04/10/18 10:16 Dose: 40 mg Influenza Virus Vaccine (Flucelvax Quad 3999-1600 Syr) 60 mcg IM .ONCE ONE Stop: 04/10/18 11:01 Rosuvastatin Calcium (Crestor) 5 mg PO [facility] Last Admin: 04/09/18 21:34 Dose: 5 mg - Labs Labs: 04/10/18 07:38 04/10/18 07:38 - Constitutional Appears: Well - Head Exam Head Exam: ATRAUMATIC - Eye Exam Eye Exam: EOMI - ENT Exam ENT Exam: Mucous Membranes Moist - Neck Exam Neck Exam: Full ROM - Respiratory Exam Respiratory Exam: Clear to Ausculation Bilateral, NORMAL BREATHING PATTERN - Cardiovascular Exam Cardiovascular Exam: REGULAR RHYTHM - GI/Abdominal Exam GI & Abdominal Exam: Normal Bowel Sounds - Exam External exam: NORMAL EXTERNAL EXAM - Extremities Exam Extremities Exam: Pedal Edema Additional comments: right arm deformity - Back Exam Back Exam: NORMAL INSPECTION - Neurological Exam Neurological Exam: Alert, Awake, Oriented x3 - Skin Skin Exam: Normal Color Assessment and Plan - Assessment and Plan (Free Text) Assessment: 1. Sinus tachcyardia, now resolved. 2. On cardezem for HTN, bp is better. 3 Normal LV EF Will sign off , thank you
[2018-04-10 12:15] VITALS: PULSE 119
--- NOTE | 2018-04-10 13:52 | VASCLAB ---
Date of service: 04/09/2018 PROCEDURE: Lower Extremity Venous Duplex Exam. HISTORY: r/o DVT. Leg edema. PRIORS: None. TECHNIQUE: Bilateral common femoral, femoral, popliteal and posterior tibial, peroneal and great saphenous veins were evaluated. Flow was assessed with color Doppler, compressibility, assessment of phasic flow and augmentation response. Report prepared by Vivek Nichole, SHERRY, RVT FINDINGS: RIGHT: 1. Common Femoral Vein: 1.1. Compressibility - Fully compressible: Thrombus - None : Flow - Phasic: Augmentation -Normal: Reflux - None. 2. Femoral Vein: 2.1. Compressibility - Fully compressible: Thrombus - None : Flow - Phasic: Augmentation -Normal: Reflux - None. 3. Popliteal Vein: 3.1. Compressibility - Fully compressible: Thrombus - None : Flow - Phasic: Augmentation -Normal: Reflux - None. 4. Posterior Tibial Vein: 4.1. Compressibility - Fully compressible: Thrombus - None: Flow - Phasic: Augmentation -Normal: Reflux - None. 5. Peroneal Vein: 5.1. Compressibility - Fully compressible: Thrombus - None: Flow - Phasic: Augmentation -Normal: Reflux - None. 6. Great Saphenous Vein: 6.1. Compressibility - Fully compressible: Thrombus - None: Flow - Phasic: Augmentation - Normal: Reflux - None. LEFT: 1. Common Femoral Vein: 1.1. Compressibility - Fully compressible: Thrombus - None: Flow - Phasic: Augmentation -Normal: Reflux - None. 2. Femoral Vein: 2.1. Compressibility - Fully compressible: Thrombus - None: Flow - Phasic: Augmentation -Normal: Reflux - None. 3. Popliteal Vein: 3.1. Compressibility - Fully compressible: Thrombus - None : Flow - Phasic: Augmentation -Normal: Reflux - None. 4. Posterior Tibial Vein: 4.1. Compressibility - Fully compressible: Thrombus - None: Flow - Phasic: Augmentation -Normal: Reflux - None. 5. Peroneal Vein: 5.1. Compressibility - : Thrombus - : Flow - : Augmentation -: Reflux - . 6. Great Saphenous Vein: 6.1. Compressibility - Fully compressible: Thrombus - None: Flow - Phasic: Augmentation - Normal: Reflux - None. OTHER FINDINGS: Right: None significant. Left: Due to swelling in the calf, the left peroneal vein was not visualized. IMPRESSION: Right: No evidence of deep or superficial vein thrombosis of the right lower extremity. Normal valve function noted of the right side. Left: No evidence of deep or superficial vein thrombosis of the left lower extremity. Normal valve function noted of the left side.
--- NOTE | 2018-04-10 17:19 | CP.PCM.DIS ---
<Jaime Barkley - Last Filed: 04/10/18 17:32> Provider - Provider Date of Admission: 04/08/18 19:46 Attending physician: Farhad Wilkinson MD Consults: 04/08/18 20:59 Cardiology Consult Routine Comment: Consulting Provider: Benson Garcia Consulting Physician: Benson Garcia Reason for Consult: tachycardia, new onset a fib 04/10/18 00:53 Case Management Referral Routine Comment: Physician Instructions: Reason For Exam: home with home services Reason for Referral: Discharge Planning Time Spent in preparation of Discharge (in minutes): 45 Hospital Course - Lab Results Lab Results: Most Recent Lab Values WBC 6.2 K/uL (4.8-10.8) 04/10/18 07:38 RBC 4.61 Mil/uL (3.80-5.20) 04/10/18 07:38 Hgb 13.1 g/dL (11.0-16.0) 04/10/18 07:38 Hct 39.2 % (34.0-47.0) 04/10/18 07:38 MCV 85.0 fL (81.0-99.0) 04/10/18 07:38 MCH 28.4 pg (27.0-31.0) 04/10/18 07:38 MCHC 33.5 g/dL (33.0-37.0) 04/10/18 07:38 RDW 14.5 % (11.5-14.5) 04/10/18 07:38 Plt Count 324 K/uL (130-400) 04/10/18 07:38 MPV 9.3 fL (7.2-11.7) 04/10/18 07:38 Neut % (Auto) 58.9 % (50.0-75.0) 04/10/18 07:38 Lymph % (Auto) 32.2 % (20.0-40.0) 04/10/18 07:38 [place] % (Auto) 7.4 % (0.0-10.0) 04/10/18 07:38 Eos % (Auto) 1.0 % (0.0-4.0) 04/10/18 07:38 Baso % (Auto) 0.5 % (0.0-2.0) 04/10/18 07:38 Neut # (Auto) 3.6 K/uL (1.8-7.0) 04/10/18 07:38 Lymph # (Auto) 2.0 K/uL (1.0-4.3) 04/10/18 07:38 [place] # (Auto) 0.5 K/uL (0.0-0.8) 04/10/18 07:38 Eos # (Auto) 0.1 K/uL (0.0-0.7) 04/10/18 07:38 Baso # (Auto) 0.0 K/uL (0.0-0.2) 04/10/18 07:38 D-Dimer, Quantitative 437 ng/mlDDU (0-243) H 04/09/18 15:02 Sodium 139 mmol/L (132-148) 04/10/18 07:38 Potassium 3.9 mmol/L (3.6-5.2) 04/10/18 07:38 Chloride 105 mmol/L (98-107) 04/10/18 07:38 Carbon Dioxide 27 mmol/L (22-30) 04/10/18 07:38 Anion Gap 11 (10-20) 04/10/18 07:38 BUN 24 mg/dL (7-17) H 04/10/18 07:38 Creatinine 0.7 mg/dL (0.7-1.2) 04/10/18 07:38 Est GFR ( Amer) > 60 04/10/18 07:38 Est GFR (Non-Af Amer) > 60 04/10/18 07:38 POC Glucose (mg/dL) 133 mg/dL (65-110) H 04/10/18 11:58 Random Glucose 108 mg/dL (65-105) H 04/10/18 07:38 Hemoglobin A1c 5.6 % (4.2-6.5) 04/09/18 05:08 Calcium 9.2 mg/dl (8.6-10.4) 04/10/18 07:38 Phosphorus 3.9 mg/dL (2.5-4.5) 04/10/18 07:38 Magnesium 2.0 mg/dL (1.6-2.3) 04/10/18 07:38 Total Bilirubin 0.6 mg/dL (0.2-1.3) 04/10/18 07:38 AST 30 U/L (14-36) 04/10/18 07:38 ALT 18 U/L (9-52) 04/10/18 07:38 Alkaline Phosphatase 84 U/L (38-126) 04/10/18 07:38 Total Creatine Kinase 130 U/L (30-135) 04/09/18 11:06 CK-MB (Mass) 2.15 ng/mL (0.0-3.38) 04/09/18 11:06 Troponin I 0.0340 ng/mL (0.00-0.120) 04/09/18 11:06 NT-Pro-B Natriuret Pep 68.6 pg/mL (0-900) 04/08/18 18:14 Total Protein 8.1 g/dL (6.3-8.3) 04/10/18 07:38 Albumin 4.5 g/dL (3.5-5.0) 04/10/18 07:38 Globulin 3.6 gm/dL (2.2-3.9) 04/10/18 07:38 Albumin/Globulin Ratio 1.3 (1.0-2.1) 04/10/18 07:38 Triglycerides 137 mg/dL (0-149) 04/09/18 04:37 Cholesterol 209 mg/dL (0-199) H 04/09/18 04:37 LDL Cholesterol Direct 128 mg/dL (0-129) 04/09/18 04:37 HDL Cholesterol 54 mg/dL (30-70) 04/09/18 04:37 Free T4 1.07 ng/dL (0.78-2.19) 04/09/18 04:37 TSH 3rd Generation 3.74 mIU/L (0.46-4.68) 04/09/18 04:00 Urine Color Straw (YELLOW) 04/08/18 17:04 Urine Clarity Clear (Clear) 04/08/18 17:04 Urine pH 6.0 (5.0-8.0) 04/08/18 17:04 Ur Specific [place] 1.008 (1.003-1.030) 04/08/18 17:04 Urine Protein Negative mg/dL (NEGATIVE) 04/08/18 17:04 Urine Glucose (UA) Normal mg/dL (Normal) 04/08/18 17:04 Urine Ketones Negative mg/dL (NEGATIVE) 04/08/18 17:04 Urine Blood 3+ (NEGATIVE) H 04/08/18 17:04 Urine Nitrate Negative (NEGATIVE) 04/08/18 17:04 Urine Bilirubin Negative (NEGATIVE) 04/08/18 17:04 Urine Urobilinogen Normal mg/dL (0.2-1.0) 04/08/18 17:04 Ur Leukocyte Esterase Trace Gray/uL (Negative) 04/08/18 17:04 Urine WBC (Auto) 1 /hpf (0-5) 04/08/18 17:04 Urine RBC (Auto) 18 /hpf (0-3) H 04/08/18 17:04 Ur Squamous Epith Cells 3 /hpf (0-5) 04/08/18 17:04 Urine Bacteria Occ (<OCC) H 04/08/18 17:04 Urine Opiates Screen Negative (NEGATIVE) 04/09/18 14:57 Urine Methadone Screen Negative (NEGATIVE) 04/09/18 14:57 Ur Barbiturates Screen Negative (NEGATIVE) 04/09/18 14:57 Ur Phencyclidine Scrn Negative (NEGATIVE) 04/09/18 14:57 Ur Amphetamines Screen Negative (NEGATIVE) 04/09/18 14:57 U Benzodiazepines Scrn Negative (NEGATIVE) 04/09/18 14:57 U Oth Cocaine Metabols Negative (NEGATIVE) 04/09/18 14:57 U Cannabinoids Screen Negative (NEGATIVE) 04/09/18 14:57 - Hospital Course Hospital Course: Initial HPI: Patient is a 62 year old female with past medical history of HTN and polio as a child presenting to ED from her PMD's office for tachycardia. Patient states she feels well, denies any chest pain or palpitations. She does endorse sensation of her "heart racing" in the past, often when going to the doctor. She denies any history of afib. No acute somatic complaints at this time. No fevers/chills, headaches, dizziness, acute changes in vision, chest pain, pa lpitations, sob, cough, abdominal pain, n/v/d/c. Hospital Course: Patient was admitted for rapid Afib/tachycardia with rate in the 200s-220s. Patient given IV cardizem 30 mg IV push x 2 in ED, then placed on cardizem drip, and then required additional 125 mg PO cardizem once transitioned off drip. Patient was not on any medications at home, because as per patient and her family, she prefers to be "natural". EGK and ROMIs all were negative. Patient was ultimately admitted to telemetry for further monitoring. Patient was started on cardizem 180 mg PO daily, which did succeed in controlling her rate. On the rn cardiac, patient's heart rate was found to be regular for the duration of her hosptal stay (initial EKG showed sinus tach, with questional A fib on cardiac monitoring) - most likely this was sinus tach rather than A fib. Infection was ruled out as cause of tachycardia via negative UA/CXR and patient had no other symptoms of infection. Blood sugars were normal in the low 100s. D-dimer was drawn and found to be elevated, however CTA was negative for PE and bilateral LE dopplers negative for DVT. Heart rate remained stable, and patient went for echo which showed diastolic dysfunction, otherwise grossly normal. Once patient found to be medically stable, she was discharged with new Rx for PO cardizem 180 mg daily. Imaging: -CXR 04/08: Cardiomegaly. Faint atherosclerotic calcification noted. Hypoinflation -EKG intial 03/28 04/08: Sinus tach with PVCs -EKG 04/28 04/08: sinus tachy @ 153 bpm with occasional PVCs -EKG 05/26 04/08: NSR in 80s. Repeating additional EKG with patient now on PO cardizem - f/u -Echo 04/09: Left ventricular systolic function is normal. EF is 60-65%. Diastolic dysfunction. No aortic regurgitation is present. There is mild tricuspid regurgitation. TGhere is mild pulmonary hypertension. There is no pulmonic valvular regurgitation. -CTA 04/09: No large central or segmental pulmonary embolus identified. 5 mm right middle lobe subpleural nodule. If the patient is high risk, an optional CT at 12 months is recommended. 4 mm right lower pole thyroid nodule. Mild cardiomegaly. -B/l LE dopplers 04/09: --Right: No evidence of deep or superficial vein thrombosis of the right lower extremity. Normal valve function noted on the right side. --Left: No evidence of deep or superficial vein thrombosis of the left lower extremity. Normal valve function noted of the left side. Please note this is only a summary of the events of this hospitalization. Pl ease see full medical records for details. Discharge Exam - Head Exam Head Exam: ATRAUMATIC, NORMOCEPHALIC - Eye Exam Eye Exam: EOMI, Normal appearance - Respiratory Exam Respiratory Exam: absent: Rales, Rhonchi, Wheezes - Cardiovascular Exam Cardiovascular Exam: REGULAR RHYTHM, +S1, +S2. absent: Tachycardia, Diastolic murmur, Systolic Murmur - GI/Abdominal Exam GI & Abdominal Exam: Normal Bowel Sounds, Soft, Unremarkable. absent: Tenderness - Extremities Exam Additional comments: bilaterally contracted upper extremities (2/2 history of polio as a child) - Neurological Exam Neurological exam: Alert, CN II-XII Intact, Oriented x3 - Psychiatric Exam Psychiatric exam: Normal Affect, Normal Mood - Skin Skin Exam: Dry, Intact Discharge Plan - Discharge Medications Prescriptions: RX: Aspirin [Aspirin Chewable] 81 mg PO DAILY #30 chew RX: diltiaZEM CD [Cardizem CD] 180 mg PO DAILY #30 cap RX: Rosuvastatin Calcium [Crestor] 5 mg PO HS #30 tab - Follow Up Plan Condition: GOOD Disposition: HOME/ ROUTINE Instructions: Heart Healthy Diet, Aspirin, Diltiazem, Rosuvastatin, Palpitations (DC), Tachycardia (DC) Additional Instructions: Patient is cleared for discharge per Dr. Smith Please continue taking the following medications when you go home: -Aspirin 81 mg one tablet by mouth daily at 8am -Cardizem 180 mg one tablet by mouth daily at 8am -Crestor 5 mg one tablet by mouth at bedtime Please make sure to follow up with your PMD, Dr. Steen within 7 days of discharge. In addition, referrals have been provided for you to please follow up with the following doctors: -Cardiology - Dr. Garcia, regarding your new onset rapid atrial fibrillation -Pulmonology - Dr. Wong, for follow up regarding a lung nodule which was found incidentally on imaging Please return to ER if symptoms recur or worsen. Referrals: Rohan Wogn MD [Staff Provider] - Benson Garcia MD [Staff Provider] - <Cynthia Smith V - Last Filed: 04/10/18 21:50> Provider - Provider Date of Admission: 04/08/18 19:46 Attending physician: Farhad Wilkinson MD Consults: 04/08/18 20:59 Cardiology Consult Routine Comment: Consulting Provider: Benson Garcia Consulting Physician: Benson Garica Reason for Consult: tachycardia, new onset a fib 04/10/18 00:53 Case Management Referral Routine Comment: Physician Instructions: Reason For Exam: home with home services Reason for Referral: Discharge Planning Hospital Course - Lab Results Lab Results: Most Recent Lab Values WBC 6.2 K/uL (4.8-10.8) 04/10/18 07:38 RBC 4.61 Mil/uL (3.80-5.20) 04/10/18 07:38 Hgb 13.1 g/dL (11.0-16.0) 04/10/18 07:38 Hct 39.2 % (34.0-47.0) 04/10/18 07:38 MCV 85.0 fL (81.0-99.0) 04/10/18 07:38 MCH 28.4 pg (27.0-31.0) 04/10/18 07:38 MCHC 33.5 g/dL (33.0-37.0) 04/10/18 07:38 RDW 14.5 % (11.5-14.5) 04/10/18 07:38 Plt Count 324 K/uL (130-400) 04/10/18 07:38 MPV 9.3 fL (7.2-11.7) 04/10/18 07:38 Neut % (Auto) 58.9 % (50.0-75.0) 04/10/18 07:38 Lymph % (Auto) 32.2 % (20.0-40.0) 04/10/18 07:38 [place] % (Auto) 7.4 % (0.0-10.0) 04/10/18 07:38 Eos % (Auto) 1.0 % (0.0-4.0) 04/10/18 07:38 Baso % (Auto) 0.5 % (0.0-2.0) 04/10/18 07:38 Neut # (Auto) 3.6 K/uL (1.8-7.0) 04/10/18 07:38 Lymph # (Auto) 2.0 K/uL (1.0-4.3) 04/10/18 07:38 [place] # (Auto) 0.5 K/uL (0.0-0.8) 04/10/18 07:38 Eos # (Auto) 0.1 K/uL (0.0-0.7) 04/10/18 07:38 Baso # (Auto) 0.0 K/uL (0.0-0.2) 04/10/18 07:38 D-Dimer, Quantitative 437 ng/mlDDU (0-243) H 04/09/18 15:02 Sodium 139 mmol/L (132-148) 04/10/18 07:38 Potassium 3.9 mmol/L (3.6-5.2) 04/10/18 07:38 Chloride 105 mmol/L (98-107) 04/10/18 07:38 Carbon Dioxide 27 mmol/L (22-30) 04/10/18 07:38 Anion Gap 11 (10-20) 04/10/18 07:38 BUN 24 mg/dL (7-17) H 04/10/18 07:38 Creatinine 0.7 mg/dL (0.7-1.2) 04/10/18 07:38 Est GFR ( Amer) > 60 04/10/18 07:38 Est GFR (Non-Af Amer) > 60 04/10/18 07:38 POC Glucose (mg/dL) 133 mg/dL (65-110) H 04/10/18 11:58 Random Glucose 108 mg/dL (65-105) H 04/10/18 07:38 Hemoglobin A1c 5.6 % (4.2-6.5) 04/09/18 05:08 Calcium 9.2 mg/dl (8.6-10.4) 04/10/18 07:38 Phosphorus 3.9 mg/dL (2.5-4.5) 04/10/18 07:38 Magnesium 2.0 mg/dL (1.6-2.3) 04/10/18 07:38 Total Bilirubin 0.6 mg/dL (0.2-1.3) 04/10/18 07:38 AST 30 U/L (14-36) 04/10/18 07:38 ALT 18 U/L (9-52) 04/10/18 07:38 Alkaline Phosphatase 84 U/L (38-126) 04/10/18 07:38 Total Creatine Kinase 130 U/L (30-135) 04/09/18 11:06 CK-MB (Mass) 2.15 ng/mL (0.0-3.38) 04/09/18 11:06 Troponin I 0.0340 ng/mL (0.00-0.120) 04/09/18 11:06 NT-Pro-B Natriuret Pep 68.6 pg/mL (0-900) 04/08/18 18:14 Total Protein 8.1 g/dL (6.3-8.3) 04/10/18 07:38 Albumin 4.5 g/dL (3.5-5.0) 04/10/18 07:38 Globulin 3.6 gm/dL (2.2-3.9) 04/10/18 07:38 Albumin/Globulin Ratio 1.3 (1.0-2.1) 04/10/18 07:38 Triglycerides 137 mg/dL (0-149) 04/09/18 04:37 Cholesterol 209 mg/dL (0-199) H 04/09/18 04:37 LDL Cholesterol Direct 128 mg/dL (0-129) 04/09/18 04:37 HDL Cholesterol 54 mg/dL (30-70) 04/09/18 04:37 Free T4 1.07 ng/dL (0.78-2.19) 04/09/18 04:37 TSH 3rd Generation 3.74 mIU/L (0.46-4.68) 04/09/18 04:00 Urine Color Straw (YELLOW) 04/08/18 17:04 Urine Clarity Clear (Clear) 04/08/18 17:04 Urine pH 6.0 (5.0-8.0) 04/08/18 17:04 Ur Specific [place] 1.008 (1.003-1.030) 04/08/18 17:04 Urine Protein Negative mg/dL (NEGATIVE) 04/08/18 17:04 Urine Glucose (UA) Normal mg/dL (Normal) 04/08/18 17:04 Urine Ketones Negative mg/dL (NEGATIVE) 04/08/18 17:04 Urine Blood 3+ (NEGATIVE) H 04/08/18 17:04 Urine Nitrate Negative (NEGATIVE) 04/08/18 17:04 Urine Bilirubin Negative (NEGATIVE) 04/08/18 17:04 Urine Urobilinogen Normal mg/dL (0.2-1.0) 04/08/18 17:04 Ur Leukocyte Esterase Trace [place]/uL (Negative) 04/08/18 17:04 Urine WBC (Auto) 1 /hpf (0-5) 04/08/18 17:04 Urine RBC (Auto) 18 /hpf (0-3) H 04/08/18 17:04 Ur Squamous Epith Cells 3 /hpf (0-5) 04/08/18 17:04 Urine Bacteria Occ (<OCC) H 04/08/18 17:04 Urine Opiates Screen Negative (NEGATIVE) 04/09/18 14:57 Urine Methadone Screen Negative (NEGATIVE) 04/09/18 14:57 Ur Barbiturates Screen Negative (NEGATIVE) 04/09/18 14:57 Ur Phencyclidine Scrn Negative (NEGATIVE) 04/09/18 14:57 Ur Amphetamines Screen Negative (NEGATIVE) 04/09/18 14:57 U Benzodiazepines Scrn Negative (NEGATIVE) 04/09/18 14:57 U Oth Cocaine Metabols Negative (NEGATIVE) 04/09/18 14:57 U Cannabinoids Screen Negative (NEGATIVE) 04/09/18 14:57 Attending/Attestation - Attestation I have personally seen and examined this patient.: Yes I have fully participated in the care of the patient.: Yes I have reviewed all pertinent clinical information, including history, physical exam and plan: Yes Notes (Text): Patient seen, examined and case discussed with director biomedical engineering. Patient asymptomatic. Heart rate controlled with Cardizem. Cardiology seen and evaluated and signed off. Dopplers negative for DVT. CT Angio negative for PE; patient noted to have lung nodules that will need to monitored as outpatient. Patient strongly recommended to make dietary changes and remain compliant on her medications for blood pressure control. Medications on discharge: 1) Aspirin 81mg PO daily for cardioprotectant agent 2) Cardizem CD 180mg PO daily for hypertension 3) Crestor 5mg POqHS for cholestrol Patient recommended to f/u with Dr. Steen post hospitalization. This is a summary of patient's hospitalization. Please review EMR for full detail of record. Discharge Diagnoses: 1. Acute onset tachyarrhythmia (stable) * Patient seen and evaluated by cardiology during hospitalization. * Controlled and resolved with Cardizem CD 180mg once a day * CT angio ruled out for PE. Venous dopplers ruled out for DVT * TSH within normal * Completed echocardiogram reviewed by cardiology 2. Hyperkalemia (Resolved) * monitored and repleted 3. Hypertension * was not compliant on prior anti-hypertensive * controlled with Cardizem * Advised to make dietary changes including low sodium and overrall better changes to her diet which noted to be fried goods 4. Impaired Glucose Tolerance * A1C 5.6 * Discussed with patient importance of healthy diet, especially due to fact she seems to choose to be noncompliant with medications because she does not like taking medications. * lipid panel - hypercholesterolemia; LDL/HDL WNL 5. Lung Nodules * CT Angio (04/09/18): no large central or segmental pulmonary embolus identified. 5 mm right middle lobe subpleural nodule. 4mm right lower pole thyroid nodule. Monitor outpatient. 6. Hx of Polio
== END 2018-04-10 15:27 | disposition home or self-care (01) ==
LOC: C.ER 16:08 → C.9E 19:46 → C.5S 04-09 15:23
PROVIDERS: ADMIT Family Medicine; ATTEND Family Medicine
DX: I48.91 Unspecified atrial fibrillation (principal); E87.5 Hyperkalemia; I10 Essential (primary) hypertension; I27.20 Pulmonary hypertension, unspecified; Z86.12 Personal history of poliomyelitis; T50.906A Underdosing of unspecified drugs, medicaments and biological substances, initial encounter; Z91.128 Patient's intentional underdosing of medication regimen for other reason; R73.02 Impaired glucose tolerance (oral); R91.1 Solitary pulmonary nodule
CPT/HCPCS: 36415; 71045; 71046; 71275; 80053; 80061; 80324; 80345; 80346; 80349; 80353; 80358; 80361; 81001; 82948; 83036; 83735; 83880; 83992; 84100; 84439; 84443; 84484; 85025; 85378; 93005; 93306; 93970; 96372; 96374; 96376; 97116; 97162; 97166; 97530; 99285; G0378; G8978; G8979; G8987; G8988; J1650; Q9967